=== PATIENT | female | born 1955 | race Caucasian/White ===

== ENCOUNTER 2017-07-05 13:34 | Outpatient (RCR) | payer BC | END 2017-07-06 | disposition home or self-care (01) | PROVIDERS: ATTEND Physical Medicine & Rehabilitation | DX: G31.84 Mild cognitive impairment of uncertain or unknown etiology (principal); E11.9 Type 2 diabetes mellitus without complications; G93.41 Metabolic encephalopathy ==

== ENCOUNTER 2017-08-09 13:38 | Outpatient (RCR) | payer BC | END 2017-09-08 15:40 | disposition home or self-care (01) | PROVIDERS: ATTEND Physical Medicine & Rehabilitation | DX: G31.84 Mild cognitive impairment of uncertain or unknown etiology (principal); E11.9 Type 2 diabetes mellitus without complications; G93.41 Metabolic encephalopathy ==

== ENCOUNTER 2018-04-26 13:35 | Outpatient (RCR) | payer BC | END 2018-04-29 | disposition home or self-care (01) | PROVIDERS: ATTEND Internal Medicine | DX: R26.9 Unspecified abnormalities of gait and mobility (principal) ==

== ENCOUNTER → 2018-07-26 | Outpatient (CLI) | payer BC ==
[~2018-07-26] MED LIST: BARIUM SUSPENSION 105% (LIQUID POLIBAR PLUS) 240 ML/DOSE PO ONE; BARIUM SUSPENSION 60% (LIQUID EZ PAQUE) 240 ML DOSE PO ONE
--- NOTE | 2018-07-26 15:06 | Diagnostic Imaging Report ---
Indication: Gagging and choking with liquids. Patient ingested effervescent crystals as well as thin and thick barium and imaging of the esophagus was performed. One minute and 41 seconds of fluoroscopy was utilized. No aspiration was observed. Swallowing mechanism is unremarkable. The esophagus has a fairly smooth contour. No mass or stricture is seen. There are occasional tertiary contractions present. No gastroesophageal reflux was demonstrated. No hiatal hernia is identified. Impression: Essentially unremarkable barium esophagram. Dictated by: Dictated on workstation # [id number]
== END ==
LOC: RAD 09:00
PROVIDERS: ATTEND Psychiatry & Neurology Neurology
DX: G20 Parkinson's disease (principal); R13.10 Dysphagia, unspecified
CPT/HCPCS: 74220